=== PATIENT | male | born 1970 | race Caucasian/White ===

== ENCOUNTER → 2020-02-05 | Outpatient (CLI) | payer OTHER ==
--- NOTE | 2020-02-05 08:49 | Diagnostic Imaging Report ---
TECHNIQUE: Magnetic resonance imaging of the RIGHT KNEE was performed WITHOUT injected contrast. HISTORY: Right knee pain COMPARISON: None available. FINDINGS: LIGAMENTS AND TENDONS: ACL: Intact PCL: Intact Collateral ligaments: Intact Iliotibial band: Unremarkable Popliteal tendon: Intact Extensor mechanism: Ossification within the distal patellar tendon extending from the tibial tuberosity. JOINT: Menisci: Medial: Partial-thickness cartilage loss with areas of high-grade fissuring involving the weightbearing medial femoral condyle and tibial plateau. Lateral: Intact Articular Cartilage: Medial Compartment: No focal defect. Lateral Compartment: No focal defect. Patellofemoral Compartment: No focal defect. Joint Fluid: Small joint effusion. BONE: No focal or infiltrative bone marrow replacing abnormality. No acute fracture. SOFT TISSUES: Otherwise, unremarkable. IMPRESSION: No acute meniscal or ligamentous abnormality. Medial compartment cartilage loss with areas of high grade fissuring. Signed by: Dr. Jourdan Vásquez M.D. on 02/05/2020 8:46 AM
== END ==
LOC: EDBD 12-21 08:00 → MRI 07:37
PROVIDERS: ATTEND Specialist
DX: M23.91 Unspecified internal derangement of right knee (principal)